=== PATIENT | female | born 1960 ===

== ENCOUNTER 2020-12-27 06:18 | Day surgery (SDC) | payer OTHER ==
[~2020-12-27 06:18] MED LIST: SYNTHROID50 MCG PO
[2020-12-27] MEDS ORDERED: ALEVE220 M1 PO (16:00)
[2020-12-27] MEDS ORDERED: CIPRO500 MG PO (16:00)
[2020-12-27] MEDS ORDERED: PERCOCET 5-3251 EACH PO (16:00)
== END 2020-12-27 21:24 | disposition home or self-care (01) ==
LOC: CIR.AMB 06:18
PROVIDERS: ATTEND Orthopaedic Surgery
DX: S52.532A Colles' fracture of left radius, initial encounter for closed fracture (principal); Z20.822 Contact with and (suspected) exposure to COVID-19
CPT/HCPCS: 20902; 25609; C1776